=== PATIENT | female | born 1980 | race Caucasian/White ===

== ENCOUNTER 2019-10-22 00:40 | Emergency (ER) | payer OTHER ==
[~2019-10-22] VITALS: Ht 172.7 cm; Wt 59.1 kg
[2019-10-22] MEDS ORDERED: OLAN2.5T3 PO (01:09)
[2019-10-22] MEDS ORDERED: METH-624 PO (01:09)
[2019-10-22] MEDS ORDERED: GABA-529 PO (01:09)
[2019-10-22 01:19] VITALS: BP 138/84
[2019-10-22] MEDS ORDERED: DOLUTEGRAVIR SODIUM 50 MG TABLET PO ONE (03:00)
[2019-10-22] MEDS ORDERED: EMTRICITABINE/TENOFOVIR 200-300 MG TABLET PO ONE (03:00)
== END 2019-10-22 03:33 | disposition home or self-care (01) ==
LOC: EMS 00:40
DX: S69.91XA Unspecified injury of right wrist, hand and finger(s), initial encounter (principal); F90.9 Attention-deficit hyperactivity disorder, unspecified type; Z79.899 Other long term (current) drug therapy; Z88.1 Allergy status to other antibiotic agents; W46.0XXA Contact with hypodermic needle, initial encounter; Y93.89 Activity, other specified; Y92.69 Other specified industrial and construction area as the place of occurrence of the external cause; Y99.8 Other external cause status
CPT/HCPCS: 84460; 86706; 86803; 87340